=== PATIENT | female | born 1970 | race Caucasian/White ===

== ENCOUNTER 2018-04-22 15:46 | Emergency (ER) | payer BC ==
[~2018-04-22] VITALS: Ht 157.5 cm; Wt 70.9 kg
[~2018-04-22 15:46] MED LIST: AMITRIPTYLINE H25 M1 PO; MOTRIN800 MG PO; NO HOME MEDICATIONS; SYNTHROID0.1 MG/TAB PO
[2018-04-22] MEDS ORDERED: TROCHE BASE1 PEL (15:53)
[2018-04-22] MEDS ORDERED: MIRENA52 MG IY (15:53)
[2018-04-22] MEDS ORDERED: HORMONE TROCHE (15:55)
[2018-04-22] MEDS ORDERED: IMITREX100 MG PO (15:55)
[2018-04-22 17:14] LABS: BASO # 0.1 (0.0-0.2); BASO % 0.6 % (0.0-2.0); EOS # 0.2 (0.0-0.7); EOS % 1.7 % (0-4.0); GRAN # 6.7 (1.4-6.5); GRAN % 74.8 % (42.2-75.2); HEMATOCRIT 37.9 % (37.0-47.0); HEMOGLOBIN 12.7 g/dl (12.5-16.0); LYMPH # 1.8 (1.2-3.4); LYMPH % 19.9 % (20.0-51.0); MEAN CELL VOLUME 89 fl (80.0-100.0); MEAN CORPUSCULAR HEMOGLOBIN 30 pg (27.0-31.0); MEAN CORPUSCULAR HGB CONC 34 g/dl (33.0-37.0); MEAN PLATELET VOLUME 9.5 fl (7.4-10.4); MONO # 0.3 (0.1-0.6); MONO % 2.8 % (1.7-9.3); PLATELET COUNT 254 K/mm3 (130-400); RED BLOOD COUNT 4.27 M/mm3 (4.10-5.30); REDCELL DISTRIBUTION WIDTH-CV 12.8 % (11.5-14.5)
[2018-04-22 17:22] LABS: ALANINE AMINOTRANSFERASE 27 U/L (9-52); ALBUMIN 3.6 gm/dL (3.5-5.0); ALKALINE PHOSPHATASE 57 U/L (50-136); ANION GAP 12 mmol/L (7-16); AST,SGOT 27 U/L (15-37); BILIRUBIN,TOTAL 0.8 mg/dL (0.0-1.0); BLOOD UREA NITROGEN 10 mg/dL (7-17); CALCIUM 9.1 mg/dL (8.4-10.2); CARBON DIOXIDE 22 mmol/L (22-30); CHLORIDE 107 mmol/L (98-107); CREATININE, serum 0.73 mg/dL (0.52-1.25); GLUCOSE 94 mg/dL (74-106); POTASSIUM 3.9 mmol/L (3.4-5.0); SODIUM 140 mmol/L (137-145); TOTAL PROTEIN 6.6 gm/dL (6.4-8.2)
[2018-04-22 17:34] LABS: TROPONIN-I < 0.012 ng/mL (0.000-0.034)
[2018-04-22 18:23] VITALS: BP 96/52; PULSE 56; TEMP 98.6
[2018-04-22] MEDS ORDERED: IMITREX50 MG PO (18:27)
[2018-04-22] MEDS ORDERED: AMITRIPTYLINE H10 M1 PO (18:27)
== END 2018-04-22 18:23 | disposition home or self-care (01) ==
LOC: COL.ER 15:46
PROVIDERS: Emergency Medicine
DX: G43.909 Migraine, unspecified, not intractable, without status migrainosus (principal); R07.89 Other chest pain; R60.0 Localized edema; E03.9 Hypothyroidism, unspecified; Z87.891 Personal history of nicotine dependence
CPT/HCPCS: J0780; J1200; J3475; J7030

== ENCOUNTER 2018-05-05 08:24 | Outpatient (CLI) | payer BC ==
[~2018-05-05] VITALS: Ht 157.5 cm; Wt 71.7 kg
[~2018-05-05 08:24] MED LIST changes: +AMITRIPTYLINE H10 M1 PO; +HORMONE TROCHE; +IMITREX100 MG PO; +IMITREX50 MG PO; +MIRENA52 MG IY; +TROCHE BASE1 PEL
[2018-05-05 08:42] VITALS: BP 115/72; PULSE 66
[2018-05-05 09:35] VITALS: BP 100/65; PULSE 74
[2018-05-05 09:50] VITALS: BP 98/56; PULSE 72; TEMP 98.4
[2018-05-05 09:58] LABS: GLUCOSE,CSF 53 mg/dL (40-70); TOTAL PROTEIN,CSF 38 mg/dL (15-45)
[2018-05-05 10:05] VITALS: BP 98/65; PULSE 72
[2018-05-05 10:20] VITALS: BP 103/62; PULSE 71
[2018-05-05 10:33] LABS: CSF APPEARANCE CLEAR; CSF COLOR COLORLESS; CSF MONONUCLEAR 92 % (70-100); CSF POLYMORPHONUCLEAR 8 % (0-6); CSF RBC 0 /mm3 (0-0)
[2018-05-05 10:35] VITALS: BP 97/62; PULSE 65
[2018-05-08 11:58] LABS: ALBUMIN CSF 17.2 mg/dL (<=27.0); CSF IGG/ALBUMIN 0.33 (<=0.21); CSF,IGG 5.7 mg/dL (<=8.1)
[2018-05-08 12:10] LABS: CSF SYNTHESIS RATE 20.07 mg/24 h (<=12); CSF-IGG INDEX 1.74 (<=0.85); IGG/ALBUMIN SERUM 0.19 (<=0.40)
== END 2018-05-05 10:59 | disposition home or self-care (01) ==
LOC: COL.RAD 08:24
PROVIDERS: Family Medicine
DX: R90.89 Other abnormal findings on diagnostic imaging of central nervous system (principal); R51 Headache; I77.6 Arteritis, unspecified

== ENCOUNTER → 2018-09-01 | Outpatient (CLI) | payer BC | LOC: MC.RAD 07-21 09:40 | DX: Z12.31 Encounter for screening mammogram for malignant neoplasm of breast (principal) ==

== ENCOUNTER → 2020-10-21 | Outpatient (CLI) | payer SELFPAY ==
[2020-10-21 08:06] LABS: HEMATOCRIT 39.9 % (37.0-47.0); HEMOGLOBIN 12.9 g/dl (12.5-16.0); MEAN CELL VOLUME 90 fl (80.0-100.0); MEAN CORPUSCULAR HEMOGLOBIN 29 pg (27.0-31.0); MEAN CORPUSCULAR HGB CONC 32 g/dl (33.0-37.0); PLATELET COUNT 279 K/mm3 (130-400); RED BLOOD COUNT 4.45 M/mm3 (4.10-5.30); REDCELL DISTRIBUTION WIDTH-CV 12.4 % (11.5-14.5)
[2020-10-21 08:12] LABS: ALBUMIN 3.9 gm/dL (3.5-5.0); BILIRUBIN,TOTAL 0.7 mg/dL (0.0-1.0); CALCIUM 9.3 mg/dL (8.4-10.2); CREATININE, serum 0.83 (0.52-1.25); POTASSIUM 3.9 mmol/L (3.4-5.0); TOTAL PROTEIN 6.7 gm/dL (6.4-8.2)
[2020-10-21 08:23] LABS: INR 1.1 (0.8-3.0); PROTHROMBIN TIME 11.9 SECONDS (9.7-12.8)
== END ==
LOC: COL.CARD 07:31
PROVIDERS: Family Medicine
DX: Z01.810 Encounter for preprocedural cardiovascular examination (principal)

== ENCOUNTER → 2022-09-19 | Outpatient (CLI) | payer OTHER | LOC: COL.RAD 13:53 | DX: D25.9 Leiomyoma of uterus, unspecified (principal) ==

== ENCOUNTER 2024-07-12 19:05 | Inpatient (IN) | payer OTHER ==
[~2024-07-12] VITALS: Ht 157.5 cm; Wt 61.0 kg
[2024-07-12] MEDS ORDERED: Morphine 4 MG/ML VIAL IV ONE (22:15)
[2024-07-12] MEDS ORDERED: NS 1,000 ML IV ONE (22:15)
[2024-07-12] MEDS ORDERED: Ondansetron 4 MG/2 ML VIAL IV ONE (22:15)
[2024-07-12 23:18] LABS: BASO # 0.1 K/mm3 (0.0-0.2); BASO % 0.7 % (0.0-2.0); EOS # 0.3 K/mm3 (0.0-0.7); GRAN # 10.8 K/mm3 (1.4-6.5); HEMATOCRIT 47.5 % (37.0-47.0); HEMOGLOBIN 15.9 g/dl (12.5-16.0); LYMPH # 1.7 K/mm3 (1.2-3.4); LYMPH % 12.3 % (20.0-51.0); MEAN CELL VOLUME 89 fl (80.0-100.0); MEAN CORPUSCULAR HEMOGLOBIN 30 pg (27-31); MEAN CORPUSCULAR HGB CONC 34 g/dl (33.0-37.0); MEAN PLATELET VOLUME 9.3 fl (7.4-10.4); MONO # 0.5 K/mm3 (0.1-0.6); MONO % 3.6 % (1.7-9.3); PLATELET COUNT 332 K/mm3 (130-400); RED BLOOD COUNT 5.34 M/mm3 (4.10-5.30); REDCELL DISTRIBUTION WIDTH-CV 12.7 % (11.5-14.5)
[2024-07-12 23:32] LABS: COLLECTION METHOD CLEAN CATCH
[2024-07-12 23:42] LABS: PH 5.5 (5.0-8.5); URINE APPEARANCE CLEAR (CLEAR/HAZY); URINE BLOOD NEGATIVE (NEGATIVE); URINE COLOR YELLOW (YELLOW); URINE GLUCOSE NEGATIVE (NEGATIVE); URINE KETONE 3+ (NEGATIVE); URINE NITRATE NEGATIVE (NEGATIVE); URINE PROTEIN(semi-quant) NEGATIVE (NEGATIVE); URINE UROBILINOGEN 0.2 E.U/dL (0.2-1.0)
[2024-07-12 23:45] LABS: ALBUMIN 3.1 g/dL (3.5-5.0); BILIRUBIN,TOTAL 0.7 mg/dL (0.2-1.2); CALCIUM 9.1 mg/dL (8.4-10.2); CREATININE, serum 0.7 mg/dL (0.57-1.11)
[2024-07-13] VITALS (11 sets, daily range): BP systolic 75–94; BP diastolic 45–61; PULSE 61–78; TEMP 97.9–98.3
[2024-07-13] MEDS ORDERED: Iohexol 300 - 100 ML VIAL IV ONE (00:03)
[2024-07-13] MEDS ORDERED: NS 50 ML IV ONE (00:04)
[2024-07-13] MEDS ORDERED: NP THYROID90 MG PO (01:22)
[2024-07-13] MEDS ORDERED: PROAIR HFA0.09 MG/AC IH (01:22)
[2024-07-13] MEDS ORDERED: HYDROmorphone 0.5 MG/0.5 ML SYRINGE IV PRN (01:45)
[2024-07-13] MEDS ORDERED: LR 1,000 ML IV SCH (01:45)
[2024-07-13] MEDS ORDERED: Ondansetron 4 MG/2 ML VIAL IV PRN ×2 (01:45)
[2024-07-13] MEDS ORDERED: LYSINE1000 MG PO (02:03)
[2024-07-13] MEDS ORDERED: PRIL40 PO (02:03)
[2024-07-13] MEDS ORDERED: CALCIUM 600MG+D1 TAB PO (02:03)
[2024-07-13] MEDS ORDERED: BENTYL 20MG20 MG/TAB PO (02:04)
[2024-07-13] MEDS ORDERED: [UNRECOGNIZED DRUG - CODE] PO (02:06)
[2024-07-13] MEDS ORDERED: Albuterol 0.083% Neb Soln 2.5 MG/3 ML UD IH PRN (02:15)
--- NOTE | 2024-07-13 06:34 | NUR ---
PT ADMITTED TO ROOM 348 PER W/C ACCOMPANIED BY SHOCK ABSORBER INSTALLER. PIV IN RH PATENT/SECURE, IVF STARTED UPON ARRIVAL @ 125 CC/HR. PT REPORTS PAIN DOWN TO 5 AFTER DILAUDID GIVEN PRIOR TO LEAVING ER. ADMISSION INTAKE, MED REC AND ASSESSMENT COMPLETED, ORIENTED PT TO ROOM, FLOOR AND POC. WILL NEED TO SEND PT'S HOME MED DOWN TO PHARMACY WHEN THEY ARRIVE IN THE MORNING.
--- NOTE | 2024-07-13 06:38 | NUR ---
PT HAS AMBULATED TO RESTROOM INDEPENDENTLY, ABLE TO REST, NO FURTHER C/O PAIN SINCE ARRIVAL, IVF INFUSING @125 CC/HR, NPO FOR BOWEL REST.
[2024-07-13] MEDS ORDERED: Patient's Own Medication Item PO SCH (07:00)
--- NOTE | 2024-07-13 08:19 | NUR ---
PT RESTING IN BED, ASSESSMENTS COMPLETE. VSS, HYPOTENSIVE. PT REPORTS SMEARS WHEN TOILETING. PT INDEPENDENT IN ROOM. A/OX4. PT REMAINS NPO. REPORTING MILD TO MODERATE SPASMS IN ABDOMEN. PT REPORTS THAT BP RUNS LOW NORMALLY. DENIES DIZZINESS OR LIGHT HEADEDNES. DR BRAYAN QUIGLEY AT THIS TIME.
[2024-07-13] MEDS ORDERED: Pantoprazole 40 MG in NS 10 ML IV SCH (09:00)
--- NOTE | 2024-07-13 13:34 | NUR ---
food service worker met with patient to discuss discharge planning. Patient lives in [facility] by herself. Patient's contacts are Luis Fernando (son) P# [phone] and Micheline (daughter) P# [phone]. PCP is currently Dr. Pringle but patient is looking at switching to [facility] or someone in [place]. SW provided list of [place] PCP options. [facility]. No issues affording medications, reports her pharmacist runs a prescription card when needed. Insurance is [employer]. No current DPOA-HC but may be interested in completing one in the hospital. SW provided a blank DPOA-HC to review. No current DME and patient reports to be independent with ADLS and has transportation for appointments. Geronimo would like to return home at time of discharge. ETIENNE will follow up tomorrow regarding DPOA-HC. Discharge plan: Home
--- NOTE | 2024-07-13 17:09 | NUR ---
PT UP TO BR INDEPENDENTLY HAD MED BM SOFT FORMED WITH SOME LIQUID. SAMPLE COLLECTED AND SENT TO LAB. IV PAIN MED AND NAUSEA MEDS GIVEN. PT TOLERATING CLEAR LIQUIDS.
--- NOTE | 2024-07-13 18:35 | NUR ---
Bedside shift report received from ERNESTO Ames. Patient laying in bed visiting with friends. Denies current needs. Call light in reach. Will monitor.
--- NOTE | 2024-07-13 19:30 | NUR ---
Assessment complete. A&Ox4. Denies pian/nausea/shortness of breath. Has had several loose stools today. Tolerating clears so far with no N/V. LR@125ml/hr to right hand IV-infusing without difficulty. Currently on RA. SCDs off due to up in room independently. Plan of care discussed for this shift to include meds/pain control/calling for questions/concerns. Verbalizes understanding. Call light in reach. Will monitor.
--- NOTE | 2024-07-13 20:14 | NUR ---
DORENE Snyder notified of blood pressure of 80s/40s. New orders for fluid bolus received.
[2024-07-13] MEDS ORDERED: LR 1,000 ML IV ONE (20:15)
--- NOTE | 2024-07-13 20:49 | NUR ---
This nurse to room to straight cath for specimen per order. Patient currently refusing stating she wouls like to try a clean catch again as she didnt have the wipes earlier and had loose stools at the same time. Spoke with DORENE Snyder to update. Clean catch supplies in bathroom with instruction on use. LR bolus currently infusing for low blood pressure. Will continue to monitor.
--- NOTE | 2024-07-13 21:35 | NUR ---
UA to lab at this time per order. Fluid bolus complete. Will recheck BP in one hour.
[2024-07-13 21:46] LABS: COLLECTION METHOD CATHETER
[2024-07-13 21:56] LABS: PH 5.5 (5.0-8.5); URINE APPEARANCE CLEAR (CLEAR/HAZY); URINE BLOOD NEGATIVE (NEGATIVE); URINE COLOR YELLOW (YELLOW); URINE GLUCOSE NEGATIVE (NEGATIVE); URINE KETONE 1+ (NEGATIVE); URINE NITRATE NEGATIVE (NEGATIVE); URINE PROTEIN(semi-quant) NEGATIVE (NEGATIVE); URINE UROBILINOGEN 0.2 E.U/dL (0.2-1.0)
--- NOTE | 2024-07-13 22:30 | NUR ---
Repeat BP 100/48. Patient resting in bed. Denies pain/nausea/shortness of breath. IV with LR@125ml/hr infusing to right hand without difficulty. Denies currrent needs. Call light in reach. Will monitor.
[2024-07-14] VITALS (14 sets, daily range): BP systolic 75–108; BP diastolic 50–65; PULSE 71–84; TEMP 98.1–98.4
--- NOTE | 2024-07-14 03:50 | NUR ---
DORENE Snyder notified of blood pressures 84/45. New orders received. Fluid bolus initiated. Patient denies dizziness/lightheadedness. Will monitor.
[2024-07-14] MEDS ORDERED: LR 1,000 ML IV ONE (04:00)
[2024-07-14 06:24] LABS: BASO % 0.5 % (0.0-2.0); EOS # 0.4 K/mm3 (0.0-0.7); EOS % 4.6 % (0.0-4.0); GRAN # 6.1 K/mm3 (1.4-6.5); GRAN % 79.2 % (42.2-75.2); LYMPH # 0.9 K/mm3 (1.2-3.4); LYMPH % 11.9 % (20.0-51.0); MEAN CELL VOLUME 88 fl (80.0-100.0); MEAN CORPUSCULAR HGB CONC 34 g/dl (33.0-37.0); MEAN PLATELET VOLUME 11.2 fl (7.4-10.4); MONO # 0.3 K/mm3 (0.1-0.6); MONO % 3.5 % (1.7-9.3); PLATELET COUNT 302 K/mm3 (130-400); RED BLOOD COUNT 4.01 M/mm3 (4.10-5.30); REDCELL DISTRIBUTION WIDTH-CV 12.8 % (11.5-14.5)
[2024-07-14 06:25] LABS: HEMATOCRIT 35.4 % (37.0-47.0); MEAN CORPUSCULAR HEMOGLOBIN 30 pg (27-31)
[2024-07-14 06:26] LABS: HEMOGLOBIN 12.1 g/dl (12.5-16.0)
--- NOTE | 2024-07-14 06:45 | NUR ---
Patient rested off an on this shift. Had some hypotension-received 2 fluid bolus. Patient states normal BP for her is 100s/50s. Received dilaudid/zofran at 0500 for abdominal pain rated 7/10. Right hand IV with LR@125ml/hr infusing without difficulty. Tolerated clear liquids. Denies current needs. Call light in reach. Will monitor.
--- NOTE | 2024-07-14 08:17 | NUR ---
pt a&ox4 resting in bed. PCT reported to this nurse low BP, this nurse checked manual pressure of 80/56. pt asymptomic and reports having chronically low blood pressures. assisted pt to laying flat. recheck bp improved to 94/60. pt denies pain and nausea after recieving zofran and dilaudid this morning. pt had small liquid stool this morning, pt reports no having a formed bowel movement in years. bowel sounds are active. fluids infusing into right hand IV at 125ml/hr. pt tolerating clear liquid diet. scds to ble. GI consult called. pt denies needs at this time. call light in reach.
--- NOTE | 2024-07-14 09:25 | NUR ---
Initial visit; Patient thanked Nib Assembler for looking in on her and said she is doing "ok." Patient stated that she remembered Nib Assembler from when her committed suicide. Nib Assembler asked if there was any way she could help today but patient said she was glad to see Nib Assembler and hear Nib Assembler is available to her as she continues to grieve her loss. Nib Assembler wished Vonnie a good recovery.
--- NOTE | 2024-07-14 11:41 | NUR ---
[employer] Research Analyst followed up with patient to inquire about interest in completing DPOA-HC. Patient stated she would like to continue to think about who she would like to designate and has a blank copy to complete at home if she chooses.
[2024-07-14 12:12] LABS: ANION GAP 10 mmol/L (7-16); CALCIUM 8.3 mg/dL (8.4-10.2); CHLORIDE 109 mEq/L (98-107); CREATININE, serum 0.67 mg/dL (0.57-1.11); GLUCOSE 138 mg/dL (70-99); POTASSIUM 3.6 mEq/L (3.5-4.5); SODIUM 138 mEq/L (136-145)
[2024-07-14 12:17] LABS: BLOOD UREA NITROGEN < 5 mg/dL (10-20)
--- NOTE | 2024-07-14 12:30 | NUR ---
THIS NURSE TOOK OVER CARE. NO CHANGES IN ASSESSMENT.
[2024-07-14] MEDS ORDERED: Ondansetron 4 MG/2 ML VIAL IV PRN (15:15)
[2024-07-14] MEDS ORDERED: Polyethylene Glycol 3350 119 GM BOTTLE PO ONE (18:00)
[2024-07-15] VITALS (8 sets, daily range): BP systolic 100–116; BP diastolic 65–73; PULSE 61–74; TEMP 97.6–98.6
[2024-07-15] MEDS ORDERED: NS 1,000 ML IV SCH (05:00)
[2024-07-15 07:24] LABS: BASO % 0.4 % (0.0-2.0); EOS # 0.2 K/mm3 (0.0-0.7); EOS % 3.2 % (0.0-4.0); GRAN # 5.8 K/mm3 (1.4-6.5); GRAN % 77.2 % (42.2-75.2); HEMOGLOBIN 11.3 g/dl (12.5-16.0); LYMPH # 1.1 K/mm3 (1.2-3.4); LYMPH % 14.1 % (20.0-51.0); MEAN CELL VOLUME 89 fl (80.0-100.0); MEAN CORPUSCULAR HEMOGLOBIN 30 pg (27-31); MEAN CORPUSCULAR HGB CONC 33 g/dl (33.0-37.0); MEAN PLATELET VOLUME 10.1 fl (7.4-10.4); MONO # 0.4 K/mm3 (0.1-0.6); MONO % 4.8 % (1.7-9.3); PLATELET COUNT 240 K/mm3 (130-400); RED BLOOD COUNT 3.82 M/mm3 (4.10-5.30); REDCELL DISTRIBUTION WIDTH-CV 12.7 % (11.5-14.5)
[2024-07-15 07:25] LABS: HEMATOCRIT 34.1 % (37.0-47.0)
[2024-07-15 07:33] LABS: ANION GAP 7 mmol/L (7-16); CALCIUM 8.2 mg/dL (8.4-10.2); CHLORIDE 110 mEq/L (98-107); CREATININE, serum 0.59 mg/dL (0.57-1.11); GLUCOSE 94 mg/dL (70-99); POTASSIUM 3.5 mEq/L (3.5-4.5); SODIUM 141 mEq/L (136-145)
[2024-07-15 07:36] LABS: BLOOD UREA NITROGEN < 5 mg/dL (10-20)
--- NOTE | 2024-07-15 11:01 | NUR ---
PATIENT ALERT AND ORIENTED X4. VSS. PATIENT HERE FOR SBO. PATIENT DENIES ANY PAIN AT THIS TIME. IV TO RIGHT HAND WITH LR RUNNING AT 75ML/HOUR. PATIENT RESTING IN CHAIR, NO FURTHER NEEDS. CALL LIGHT IN REACH.
[2024-07-15] MEDS ORDERED: Lidocaine PF 2% (20 MG/ML) 5 ML VIAL ONE (13:52)
[2024-07-15] MEDS ORDERED: fentaNYL 50 MCG/ML 2 ML VIAL ONE (13:52)
--- NOTE | 2024-07-15 14:17 | NUR ---
PATIENT OFF OF FLOOR FOR PROCEDURE.
[2024-07-15] MEDS ORDERED: NS 100 ML IV SCH (16:55)
[2024-07-15] MEDS ORDERED: Iohexol 300 - 100 ML VIAL IV ONE (16:57)
--- NOTE | 2024-07-15 18:15 | NUR ---
DISCHARGE INSTRUCTIONS PROVIDED. PATIENT EDUCATION GIVEN. IV DC'D. FOLLOW UP APPOINTMENTS DISCUSSED. PATIENT ENCOURAGED TO ESTABLISH A PCP. PATIENT DENIES ANY QUESTIONS OR CONCERNS. PATIENT ESCORTED OUT VIA WHEELCHAIR.
== END 2024-07-15 18:17 | disposition home or self-care (01) | DRG 386 ==
LOC: COL.ER 19:05 → SURG 07-13 01:41
PROVIDERS: Emergency Medicine; Internal Medicine Gastroenterology; Nurse Practitioner Family; ADMIT Internal Medicine
PROC: 0DBB8ZX Excision of Ileum, Via Natural or Artificial Opening Endoscopic, Diagnostic (ICD-10-PCS; 2024-07-15)
PROC: 0DBE8ZX Excision of Large Intestine, Via Natural or Artificial Opening Endoscopic, Diagnostic (ICD-10-PCS; 2024-07-15)
PROC: 0DB98ZX Excision of Duodenum, Via Natural or Artificial Opening Endoscopic, Diagnostic (ICD-10-PCS; principal; 2024-07-15 13:30)
PROC: 0DB68ZX Excision of Stomach, Via Natural or Artificial Opening Endoscopic, Diagnostic (ICD-10-PCS; 2024-07-15 13:30)
DX: K50.012 Crohn's disease of small intestine with intestinal obstruction (principal); R65.10 Systemic inflammatory response syndrome (SIRS) of non-infectious origin without acute organ dysfunction; K52.9 Noninfective gastroenteritis and colitis, unspecified; E03.9 Hypothyroidism, unspecified; J44.9 Chronic obstructive pulmonary disease, unspecified; K21.9 Gastro-esophageal reflux disease without esophagitis; G43.909 Migraine, unspecified, not intractable, without status migrainosus; K59.89 Other specified functional intestinal disorders; I95.9 Hypotension, unspecified; F17.210 Nicotine dependence, cigarettes, uncomplicated; Z88.5 Allergy status to narcotic agent; Z90.49 Acquired absence of other specified parts of digestive tract; Z79.899 Other long term (current) drug therapy; Z79.890 Hormone replacement therapy
CPT/HCPCS: J1170; J2405; J2470; J2704; J3010; J7030; J7120; Q9967